=== PATIENT | female | born 1955 | race Caucasian/White ===

== ENCOUNTER → 2018-05-10 | Outpatient (CLI) | payer MEDICARE, MEDICAID ==
--- NOTE | 2018-05-10 14:39 | Diagnostic Imaging Report ---
CT low-dose lung cancer screening. Indication: [id number] smoking history. Routine images of the thorax were obtained using low-dose lung cancer screening protocol were performed. There are no prior studies available for comparison. This study is less than optimal due to patient's body habitus. There is no parenchymal lung mass identified. The lungs are generally clear. There is no sign of failure, pneumonia or pleural effusion to indicate an acute abnormality. The heart size is within normal limits. Dense coronary artery calcifications are evident. The aorta is not abnormally dilated. There is no obvious mediastinal or hilar adenopathy. The thyroid gland was not well visualized. There is no obvious breast mass. According to our records the patient has not had a mammogram. If the patient has had a recent (within the last year) mammogram elsewhere, then no further imaging will be necessary. However if the patient has not had a recent mammogram, then mammography would be recommended for further study. The sections through the upper abdomen are of limited diagnostic value due to artifact. The bone windows show no sign of a fracture or of a destructive lesion. Impression: 1. There is no parenchymal lung mass identified. A followup CT low-dose lung cancer screening exam in one year would be recommended for continued evaluation. 2. There is no acute cardiopulmonary abnormality noted. 3. The heart is not enlarged but there are dense coronary artery calcifications. 4. There is no obvious breast mass. Recommendations as above. Lung rads category 1. Dictated by: Dictated on workstation # [id number]
== END ==
LOC: RAD 11:34
PROVIDERS: ATTEND Family Medicine
DX: Z12.2 Encounter for screening for malignant neoplasm of respiratory organs (principal); I25.10 Atherosclerotic heart disease of native coronary artery without angina pectoris; Z87.891 Personal history of nicotine dependence